=== PATIENT | male | born 1965 | race Caucasian/White ===

== ENCOUNTER 2016-09-08 14:23 | Emergency (ER) | payer SELFPAY ==
[~2016-09-08] VITALS: Ht 165.1 cm; Wt 63.4 kg
[2016-09-08] MEDS ORDERED: NAPROXEN500 MG PO (15:59)
[2016-09-08 16:06] VITALS: BP 138/72
== END 2016-09-08 16:09 | disposition home or self-care (01) ==
LOC: EME 14:23
DX: S86.811A Strain of other muscle(s) and tendon(s) at lower leg level, right leg, initial encounter (principal); Z98.890 Other specified postprocedural states
CPT/HCPCS: 93971; 99281; 99284; J1885